=== PATIENT | female | born 1985 | race Caucasian/White ===

== ENCOUNTER 2016-12-18 11:03 | Emergency (ER) | payer SELFPAY ==
[~2016-12-18] VITALS: Ht 172.7 cm; Wt 59.0 kg
[2016-12-18 11:12] VITALS: BP 115/71
[2016-12-18] MEDS ORDERED: PROAIR HFA8.5 GM INH (11:54)
[2016-12-18] MEDS ORDERED: ACYC400T PO (11:54)
--- NOTE | 2016-12-18 11:54 | PHYS DOC ---
Past Medical History Past Medical History: Depression Additional Past Medical Histor: Herpes Past Surgical History: No Surgical History Alcohol Use: None Drug Use: None Adult General Chief Complaint Chief Complaint: MEDICATION REFILL [facility] HPI Patient is a 31 year old female presents emergency department stating that she took a home test was . Patient states that her are homeless and has been living on the streets. They're trying to get into with but did not have the information needed to be able to follow through with this. Patient also states that she is out of her acyclovir in which she uses to treat herpes. Patient also states that she is needing her bupropion and trazadone filled. Patient states she is having vaginal discharge but states it's is nothing different then it has been. She denies any concerns for sexually transmitted infections and prefers to not have any type of vaginal exam completed at this time. Review of Systems Review of Systems Constitutional: Denies fever or chills [] Eyes: Denies change in visual acuity, redness, or eye pain [] HENT: Denies nasal congestion or sore throat [] Respiratory: Denies cough or shortness of breath [] Cardiovascular: No additional information not addressed in HPI [] GI: Denies abdominal pain, nausea, vomiting, bloody stools or diarrhea [] : Denies dysuria or hematuria [] Musculoskeletal: Denies back pain or joint pain [] Integument: Denies rash or skin lesions [] Neurologic: Denies headache, focal weakness or sensory changes [] Endocrine: Denies polyuria or polydipsia [] Physical Exam Physical Exam Constitutional: Well developed, well nourished, no acute distress, non-toxic appearance. [] HENT: Normocephalic, atraumatic, bilateral external ears normal, oropharynx moist, no oral exudates, nose normal. [] Eyes: PERRLA, EOMI, conjunctiva normal, no discharge. [] Neck: Normal range of motion, no tenderness, supple, no stridor. [] Cardiovascular:Heart rate regular rhythm, no murmur [] Lungs & Thorax: Bilateral breath sounds clear to auscultation [] Skin: Warm, dry, no erythema, no rash. [] Back: No tenderness Extremities: No tenderness, no cyanosis, no clubbing, ROM intact, no edema. [] Neurologic: Alert and oriented X 3, normal motor function, normal sensory function, no focal deficits noted. [] Psychologic: Affect normal, judgement normal, mood normal. [] Current Patient Data Vital Signs Vital Signs Date Time Temp Pulse Resp B/P (MAP) Pulse Ox O2 Delivery O2 Flow Rate FiO2 12/18/16 11:12 98.5 78 18 96 Room Air 98.5 EKG EKG [] Radiology/Procedures Radiology/Procedures [] Course & Med Decision Making Course & Med Decision Making Pertinent Labs and Imaging studies reviewed. (See chart for details) Patient will be provided with her acyclovir which she states she takes 400 mg daily. Her bupropion and trazodone will not be filled at this time as there considered a category C. Patient also takes Bronkaid in which this will not be refilled as well. She will have ever be provided with albuterol. Patient was provided with information from [facility] that was found on the Internet. Patient will be discharged home in stable condition with signs and symptoms to return back to emergency department. She'll also be given [employer]'s number Dr. Workman in which she can follow-up with for further care. [] Dragon Disclaimer Dragon Disclaimer This electronic medical record was generated, in whole or in part, using a voice recognition dictation system. Departure Departure Impression: Primary Impression: Medication refill Additional Impression: test positive Disposition: 01 HOME, SELF-CARE Condition: STABLE Patient Instructions: Medication Refill, Emergency Department, Additional Instructions: You have been given a refill on your acyclovir. We'll provide 2 with a prescription for Pro air. Follow-up with with for further evaluations for your . Tylenol for pain and discomfort. If also been given an [employer] name to follow up with as well. Return back to emergency prior signs symptoms of become worse. Scripts Albuterol Sulfate (PROAIR HFA INHALER) 8.5 Gm Hfa.aer.ad 1 PUFF INH PRN Q6HRS Y for SHORTNESS OF BREATH, #1 INHALER 0 Refills Prov: NENA ROLDAN APRN 12/18/16 Acyclovir (ACYCLOVIR) 400 Mg Tablet 1 TAB PO DAILY, #30 TAB 3 Refills Prov: NENA ROLDAN APRN 12/18/16 Problem Qualifiers NENA ROLDAN APRN December 18, 2016 11:54
== END 2016-12-18 12:02 | disposition home or self-care (01) ==
LOC: ER 11:03
DX: Z76.0 Encounter for issue of repeat prescription (principal); Z32.01 Encounter for pregnancy test, result positive; F32.9 Major depressive disorder, single episode, unspecified
CPT/HCPCS: 81025; 84703; 99283

== ENCOUNTER 2016-12-30 12:09 | Emergency (ER) | payer OTHER ==
[~2016-12-30] VITALS: Ht 165.1 cm; Wt 61.2 kg
[~2016-12-30 12:09] MED LIST: ACYC400T PO; PROAIR HFA8.5 GM INH
[2016-12-30 12:40] VITALS: BP 115/54
--- NOTE | 2016-12-30 12:46 | PHYS DOC ---
Past Medical History Past Medical History: Depression Additional Past Medical Histor: Herpes Past Surgical History: No Surgical History Alcohol Use: None Drug Use: None Adult General Chief Complaint Chief Complaint: ABDOMINAL PAIN HPI HPI Patient is a 31 year old who presents with and abdominal pain. She states been off last couple weeks and some suprapubic area last for only a few seconds and twisting and turning and bending over makes it feel better. She is having some vaginal discharge that is also intermittent. She does have a history of herpes but states she hasn't had any outbreak recently. She's not quite sure when her last menstrual period was last month she had a very light when. Review of Systems Review of Systems Constitutional: Denies fever or chills [] Eyes: Denies change in visual acuity, redness, or eye pain [] HENT: Denies nasal congestion or sore throat [] Respiratory: Denies cough or shortness of breath [] Cardiovascular: No additional information not addressed in HPI [] GI: Denies abdominal pain, nausea, vomiting, bloody stools or diarrhea [] : Denies dysuria or hematuria [] Musculoskeletal: Denies back pain or joint pain [] Integument: Denies rash or skin lesions [] Neurologic: Denies headache, focal weakness or sensory changes [] Endocrine: Denies polyuria or polydipsia [] Allergies Allergies Allergies Coded Allergies Type Severity Reaction Last Updated Verified No Known Drug Allergies 12/30/16 No Physical Exam Physical Exam Constitutional: Well developed, well nourished, no acute distress, non-toxic appearance. [] HENT: Normocephalic, atraumatic, bilateral external ears normal, oropharynx moist, no oral exudates, nose normal. [] Eyes: PERRLA, EOMI, conjunctiva normal, no discharge. [] Neck: Normal range of motion, no tenderness, supple, no stridor. [] Cardiovascular:Heart rate regular rhythm, no murmur [] Lungs & Thorax: Bilateral breath sounds clear to auscultation [] Abdomen/pelvic exam: Bowel sounds normal, soft, no tenderness, no masses, no pulsatile masses. Normal external genitalia, no lesions seen, no cervical motion tenderness, minimal mucous discharge, no bleeding seen. Skin: Warm, dry, no erythema, no rash. [] Back: No tenderness, no CVA tenderness. [] Extremities: No tenderness, no cyanosis, no clubbing, ROM intact, no edema. [] Neurologic: Alert and oriented X 3, normal motor function, normal sensory function, no focal deficits noted. [] Psychologic: Affect normal, judgement normal, mood normal. [] Current Patient Data Vital Signs Vital Signs Date Time Temp Pulse Resp B/P (MAP) Pulse Ox O2 Delivery O2 Flow Rate FiO2 12/30/16 12:40 98.9 71 18 115/54 (74) 100 Room Air 98.9 Lab Values Laboratory Tests Test 12/30/16 11:41 12/30/16 12:32 12/30/16 13:12 POC Urine HCG, Qualitative Hcg positive (Negative) Urine Collection Type Unknown Urine Color Yellow Urine Clarity Clear Urine pH 6.5 Urine Specific [place] <=1.005 Urine Protein Negative mg/dL (NEG-TRACE) Urine Glucose (UA) Negative mg/dL (NEG) Urine Ketones (Stick) Negative mg/dL (NEG) Urine Blood Negative (NEG) Urine Nitrite Negative (NEG) Urine Bilirubin Negative (NEG) Urine Urobilinogen Dipstick 0.2 mg/dL (0.2 mg/dL) Urine Leukocyte Esterase Negative (NEG) Urine RBC 0 /HPF (0-2) Urine WBC Occ /HPF (0-4) Urine Squamous Epithelial Cells Few /LPF Urine Bacteria 0 /HPF (0-FEW) White Blood Count 7.8 x10^3/uL (4.0-11.0) Red Blood Count 4.32 x10^6/uL (3.50-5.40) Hemoglobin 11.5 g/dL (12.0-15.5) L Hematocrit 35.1 % (36.0-47.0) L Mean Corpuscular Volume 81 fL (79-100) Mean Corpuscular Hemoglobin 27 pg (25-35) Mean Corpuscular Hemoglobin Concent 33 g/dL (31-37) Red Cell Distribution Width 18.0 % (11.5-14.5) H Platelet Count 294 x10^3/uL (140-400) Neutrophils (%) (Auto) 57 % (31-73) Lymphocytes (%) (Auto) 31 % (24-48) Monocytes (%) (Auto) 9 % (0-9) Eosinophils (%) (Auto) 2 % (0-3) Basophils (%) (Auto) 1 % (0-3) Neutrophils # (Auto) 4.4 x10^3uL (1.8-7.7) Lymphocytes # (Auto) 2.4 x10^3/uL (1.0-4.8) Monocytes # (Auto) 0.7 x10^3/uL (0.0-1.1) Eosinophils # (Auto) 0.2 x10^3/uL (0.0-0.7) Basophils # (Auto) 0.1 x10^3/uL (0.0-0.2) Prothrombin Time 12.0 SEC (11.7-14.0) Prothrombin Time INR 0.9 (0.8-1.1) PTT 30 SEC (24-38) Sodium Level 140 mmol/L (136-145) Potassium Level 3.9 mmol/L (3.5-5.1) Chloride Level 105 mmol/L (98-107) Carbon Dioxide Level 27 mmol/L (21-32) Anion Gap 8 (6-14) Blood Urea Nitrogen 7 mg/dL (7-20) Creatinine 0.6 mg/dL (0.6-1.0) Estimated GFR (Cockcroft-Gault) 115.9 Glucose Level 77 mg/dL (70-99) Calcium Level 8.7 mg/dL (8.5-10.1) Total Bilirubin 0.2 mg/dL (0.2-1.0) Direct Bilirubin 0.1 mg/dL (0.0-0.2) Aspartate Amino Transferase (AST) 12 U/L (15-37) L Alanine Aminotransferase (ALT) 21 U/L (14-59) Alkaline Phosphatase 57 U/L (46-116) Total Protein 6.8 g/dL (6.4-8.2) Albumin 3.4 g/dL (3.4-5.0) Laboratory Tests 12/30/16 13:12 Laboratory Tests 12/30/16 13:12 EKG EKG [] Radiology/Procedures Radiology/Procedures [facility] [address] [place], [place] [id number] IMAGING REPORT Signed PATIENT: BART GORE ACCOUNT: [id number] : 1985 LOCATION: ER AGE: 31 SEX: F EXAM STATUS: REG ER ORD. PHYSICIAN: ANGELITA AARON MD REASON: abd pain PROCEDURE: OB < 14 WKS Obstetrical ultrasound, 12/30/2016: History: Pelvic pain, early Transabdominal scans were obtained. The uterus contains a single gestational sac. The gestational sac contains a yolk sac as well as a pole demonstrating a crown-rump length of 3-4 mm. This suggests a gestational age of 6 weeks yielding a sonographic EDC of 08/16/2017. Faint cardiac activity is identified with a heart rate of 99 bpm. No subchorionic hemorrhage is seen. There is a 1.5 cm cyst in the left ovary. The right ovary is unremarkable. No free fluid is evident in the pelvis. IMPRESSION: 1. Single viable intrauterine of 6 weeks gestational age. 2. bradycardia. Sonographic follow-up is suggested. 3. Small right ovarian cyst DICTATED and SIGNED BY: YUE HUERTAS MD DATE: 12/30/16 5252 CC: ANGELITA AARON MD; NO PCP ~ Impressions: Abdominal pain in Course & Med Decision Making Course & Med Decision Making Pertinent Labs and Imaging studies reviewed. (See chart for details) Pelvic exam is nonacute. Ultrasound shows bradycardia 3-99. Her wet mount shows few white blood cells, moderate squames, no clue cells trichomonas or yeast seen. She's being discharged with follow-up with Dr. Gusman. Return precautions given her and her significant other are agreeable to the plan and being discharged in stable condition. Dragon Disclaimer Dragon Disclaimer This electronic medical record was generated, in whole or in part, using a voice recognition dictation system. Departure Departure Impression: Primary Impression: Abdominal pain affecting Disposition: HOME, SELF-CARE Condition: STABLE Referrals: NO PCP (PCP) DEVON GUSMAN MD Patient Instructions: Abdominal Pain During , [id number] Additional Instructions: Your physical exam, urinalysis and pelvic exam did not show any acute abnormalities. Your ultrasound as listed below. Your rabies heart rate is slightly low but at a rate of 99 bpm. You will need to follow-up with Dr. Gusman hurting her and if you have any vaginal bleeding worsening pain or other concerns please return back to ER. [facility] [address] [place] [address] IMAGING REPORT Signed PATIENT: BART GORE ACCOUNT: [id number] : 1985 LOCATION: ER AGE: 31 SEX: F EXAM STATUS: REG ER ORD. PHYSICIAN: ANGELITA AARON MD REASON: abd pain PROCEDURE: OB < 14 WKS Obstetrical ultrasound, 12/30/2016: History: Pelvic pain, early Transabdominal scans were obtained. The uterus contains a single gestational sac. The gestational sac contains a yolk sac as well as a pole demonstrating a crown-rump length of 3-4 mm. This suggests a gestational age of 6 weeks yielding a sonographic EDC of 08/16/2017. Faint cardiac activity is identified with a heart rate of 99 bpm. No subchorionic hemorrhage is seen. There is a 1.5 cm cyst in the left ovary. The right ovary is unremarkable. No free fluid is evident in the pelvis. IMPRESSION: 1. Single viable intrauterine of 6 weeks gestational age. 2. bradycardia. Sonographic follow-up is suggested. 3. Small right ovarian cyst DICTATED and SIGNED BY: YUE HUERTAS MD DATE: 12/30/16 3315 CC: ANGELITA AARON MD; NO PCP ~ ANGELITA AARON MD Dec 30, 2016 12:46
[2016-12-30 12:58] LABS: BILIRUBIN,URINE NEGATIVE (NEG); GLUCOSE,URINE NEGATIVE (NEG); PH,URINE 6.5; PROTEIN,URINE NEGATIVE (NEG-TRACE)
[2016-12-30 12:59] LABS: BACTERIA,URINE 0 /HPF (0-FEW); NITRITE,URINE NEGATIVE (NEG); RBC,URINE 0 /HPF (0-2); SQUAMOUS EPITHELIAL CELL,UR FEW /LPF; UROBILINOGEN,URINE 0.2 mg/dL (0.2 mg/dL); WBC,URINE OCC /HPF (0-4)
[2016-12-30 13:29] LABS: WHITE BLOOD COUNT 7.8 x10^3/uL (4.0-11.0)
[2016-12-30 13:30] LABS: BASO # 0.1 x10^3/uL (0.0-0.2); BASO % 1 % (0-3); EOS % 2 % (0-3); HEMATOCRIT 35.1 % (36.0-47.0); HEMOGLOBIN 11.5 g/dL (12.0-15.5); LYMPH # 2.4 x10^3/uL (1.0-4.8); LYMPH % 31 % (24-48); MEAN CORPUSCULAR HEMOGLOBIN 27 pg (25-35); MEAN CORPUSCULAR HGB CONC 33 g/dL (31-37); MEAN CORPUSCULAR VOLUME 81 fL (79-100); MONO % 9 % (0-9); NEUT % 57 % (31-73); PLATELET COUNT 294 x10^3/uL (140-400); RED BLOOD COUNT 4.32 x10^6/uL (3.50-5.40)
[2016-12-30 13:43] LABS: INR 0.9 (0.8-1.1)
[2016-12-30 13:54] LABS: CALCIUM 8.7 mg/dL (8.5-10.1); CREATININE 0.6 mg/dL (0.6-1.0); GFR 115.9; POTASSIUM 3.9 mmol/L (3.5-5.1)
--- NOTE | 2016-12-30 13:54 | RAD ---
Obstetrical ultrasound, 12/30/2016: History: Pelvic pain, early Transabdominal scans were obtained. The uterus contains a single gestational sac. The gestational sac contains a yolk sac as well as a pole demonstrating a crown-rump length of 3-4 mm. This suggests a gestational age of 6 weeks yielding a sonographic EDC of 08/16/2017. Faint cardiac activity is identified with a heart rate of 99 bpm. No subchorionic hemorrhage is seen. There is a 1.5 cm cyst in the left ovary. The right ovary is unremarkable. No free fluid is evident in the pelvis. IMPRESSION: 1. Single viable intrauterine of 6 weeks gestational age. 2. bradycardia. Sonographic follow-up is suggested. 3. Small right ovarian cyst
[2016-12-30 13:59] LABS: ALBUMIN 3.4 g/dL (3.4-5.0); DIRECT BILIRUBIN 0.1 mg/dL (0.0-0.2); TOTAL BILIRUBIN 0.2 mg/dL (0.2-1.0); TOTAL PROTEIN 6.8 g/dL (6.4-8.2)
== END 2016-12-30 16:36 | disposition home or self-care (01) ==
LOC: ER 12:09
DX: O26.891 Other specified pregnancy related conditions, first trimester (principal); R10.9 Unspecified abdominal pain; F32.9 Major depressive disorder, single episode, unspecified; O99.341 Other mental disorders complicating pregnancy, first trimester; Z3A.01 Less than 8 weeks gestation of pregnancy
CPT/HCPCS: 36415; 76801; 80048; 80076; 81001; 81025; 84702; 85027; 85610; 85730; 87491; 87591; 99285; Q0111

== ENCOUNTER 2017-05-21 13:46 | Observation (INO) | payer OTHER ==
[2017-05-21] MEDS ORDERED: IV RINGERS,LACTATED 1000ML 1,000 ML IV SCH (14:56)
[2017-05-21 15:15] LABS: BILIRUBIN,URINE NEGATIVE (NEG); GLUCOSE,URINE NEGATIVE (NEG); NITRITE,URINE NEGATIVE (NEG); PROTEIN,URINE NEGATIVE (NEG-TRACE); UROBILINOGEN,URINE 0.2 mg/dL (0.2 mg/dL)
[2017-05-21 15:16] LABS: BARBITURATES NEG (NEG); BENZODIAZEPINES NEG (NEG); CANNABINOIDS NEG (NEG); COCAINE NEG (NEG); METHADONE NEG (NEG); OPIATES NEG (NEG); PHENCYCLIDINE NEG (NEG)
[2017-05-21 15:34] LABS: BACTERIA,URINE 0 /HPF (0-FEW); RBC,URINE 0 /HPF (0-2); SQUAMOUS EPITHELIAL CELL,UR MOD /LPF; WBC,URINE 0 /HPF (0-4)
[2017-05-21] MEDS ORDERED: PANTOPRAZOLE 40 MG TABLET.DR. PO ONE (16:15)
== END 2017-05-21 16:45 | disposition home or self-care (01) ==
LOC: 3 SO LND 13:46
PROVIDERS: ADMIT Obstetrics & Gynecology; ATTEND Obstetrics & Gynecology
DX: O26.892 Other specified pregnancy related conditions, second trimester (principal); M54.89 Other dorsalgia; Z3A.27 27 weeks gestation of pregnancy
CPT/HCPCS: 80307; 81001; 87086; G0378; G0379; G0479

== ENCOUNTER 2017-06-22 13:38 | Observation (INO) | payer OTHER | END 2017-06-22 15:20 | disposition home or self-care (01) | LOC: 3 SO LND 13:38 | PROVIDERS: ADMIT Specialist; ATTEND Specialist | DX: O62.9 Abnormality of forces of labor, unspecified (principal); O26.893 Other specified pregnancy related conditions, third trimester; N89.8 Other specified noninflammatory disorders of vagina; Z3A.32 32 weeks gestation of pregnancy | CPT/HCPCS: G0378; G0379 ==

== ENCOUNTER 2017-07-07 07:10 | Observation (INO) | payer OTHER ==
[2017-07-07] MEDS ORDERED: IV RINGERS,LACTATED 1000ML 1,000 ML IV SCH (07:55)
[2017-07-07 08:10] LABS: BILIRUBIN,URINE NEGATIVE (NEG); GLUCOSE,URINE NEGATIVE (NEG); NITRITE,URINE NEGATIVE (NEG); PH,URINE 7.5; PROTEIN,URINE NEGATIVE (NEG-TRACE)
[2017-07-07 08:16] LABS: SQUAMOUS EPITHELIAL CELL,UR MOD /LPF
[2017-07-07 08:17] LABS: BACTERIA,URINE MODERATE /HPF (0-FEW)
[2017-07-07 08:18] LABS: RBC,URINE RARE /HPF (0-2)
== END 2017-07-07 08:45 | disposition home or self-care (01) ==
LOC: 3 SO LND 07:10
PROVIDERS: ADMIT Specialist; ATTEND Specialist
DX: O62.9 Abnormality of forces of labor, unspecified (principal); O26.893 Other specified pregnancy related conditions, third trimester; M54.9 Dorsalgia, unspecified; Z3A.34 34 weeks gestation of pregnancy
CPT/HCPCS: 81001; 87086; G0378; G0379

== ENCOUNTER 2017-07-10 23:00 | Observation (INO) | payer OTHER ==
[2017-07-10] MEDS ORDERED: IV RINGERS,LACTATED 1000ML 1,000 ML IV SCH (23:30)
[2017-07-10 23:39] LABS: BILIRUBIN,URINE NEGATIVE (NEG); GLUCOSE,URINE NEGATIVE (NEG); NITRITE,URINE NEGATIVE (NEG); PROTEIN,URINE NEGATIVE (NEG-TRACE); UROBILINOGEN,URINE 0.2 mg/dL (0.2 mg/dL)
[2017-07-10 23:45] LABS: BACTERIA,URINE FEW /HPF (0-FEW); RBC,URINE 0 /HPF (0-2); SQUAMOUS EPITHELIAL CELL,UR FEW /LPF; WBC,URINE 0 /HPF (0-4)
[2017-07-10 23:46] LABS: BARBITURATES NEG (NEG); BENZODIAZEPINES NEG (NEG); CANNABINOIDS NEG (NEG); COCAINE NEG (NEG); METHADONE NEG (NEG); OPIATES NEG (NEG); PHENCYCLIDINE NEG (NEG)
== END 2017-07-11 01:13 | disposition home or self-care (01) ==
LOC: 3 SO LND 23:00
PROVIDERS: ADMIT Specialist; ATTEND Specialist
DX: O26.893 Other specified pregnancy related conditions, third trimester (principal); R10.30 Lower abdominal pain, unspecified; R10.2 Pelvic and perineal pain; Z3A.34 34 weeks gestation of pregnancy
CPT/HCPCS: 80307; 81001; G0378; G0379; G0479

== ENCOUNTER 2017-08-01 18:14 | Observation (INO) | payer OTHER | END 2017-08-01 19:50 | disposition home or self-care (01) | LOC: 3 SO LND 18:14 | DX: O36.5930 Maternal care for other known or suspected poor fetal growth, third trimester, not applicable or unspecified (principal); Z3A.38 38 weeks gestation of pregnancy | CPT/HCPCS: G0378; G0379 ==

== ENCOUNTER 2017-09-14 11:43 | Emergency (ER) | payer OTHER ==
[2017-09-14 12:02] LABS: URINE HCG POC HCG NEGATIVE (Negative)
[2017-09-14] MEDS: IOHEXOL 300 MG/ML 100ML VIAL. IV ×2 (12:30)
[2017-09-14 12:32] LABS: ADD MAN DIFF? NO
[2017-09-14] MEDS: 0.9 % SODIUM CHLORIDE 10 ML DISP.SYRIN. IV ×2 (12:35)
[2017-09-14] MEDS: IV NORMAL SALINE 1000ML BAG 1,000 ML IV ×2 (12:35)
[2017-09-14] MEDS: ONDANSETRON PF 4 MG/2 ML VIAL. IV ×2 (12:36)
[2017-09-14 12:38] LABS: CLARITY,URINE CLOUDY; COLOR,URINE RED; GLUCOSE,URINE NEGATIVE (NEG); PROTEIN,URINE 100 mg/dL (NEG-TRACE); UROBILINOGEN,URINE 0.2 mg/dL (0.2 mg/dL)
[2017-09-14 12:41] LABS: BASO % 1 % (0-3); EOS # 0.4 x10^3/uL (0.0-0.7); EOS % 7 % (0-3); HEMOGLOBIN 11.1 g/dL (12.0-15.5); LYMPH # 2.3 x10^3/uL (1.0-4.8); LYMPH % 39 % (24-48); MEAN CORPUSCULAR HEMOGLOBIN 26 pg (25-35); MEAN CORPUSCULAR HGB CONC 33 g/dL (31-37); MEAN CORPUSCULAR VOLUME 81 fL (79-100); MONO # 0.6 x10^3/uL (0.0-1.1); MONO % 10 % (0-9); NEUT # 2.6 x10^3uL (1.8-7.7); NEUT % 44 % (31-73); PLATELET COUNT 338 x10^3/uL (140-400); RED BLOOD COUNT 4.18 x10^6/uL (3.50-5.40); RED CELL DISTRIBUTION WIDTH 14.8 % (11.5-14.5); WHITE BLOOD COUNT 5.9 x10^3/uL (4.0-11.0)
[2017-09-14] MEDS ORDERED: CONTRAST GIVEN MC ×2 (12:45)
[2017-09-14 12:51] LABS: BACTERIA,URINE 0 /HPF (0-FEW); RBC,URINE TNTC /HPF (0-2); SQUAMOUS EPITHELIAL CELL,UR FEW /LPF
[2017-09-14 12:56] LABS: ANION GAP 6 (6-14); BLOOD UREA NITROGEN 6 mg/dL (7-20); CALCIUM 9.2 mg/dL (8.5-10.1); CARBON DIOXIDE 30 mmol/L (21-32); CHLORIDE 104 mmol/L (98-107); CREATININE 0.7 mg/dL (0.6-1.0); GFR 96.4; GLUCOSE 59 mg/dL (70-99); POTASSIUM 3.6 mmol/L (3.5-5.1); SODIUM 140 mmol/L (136-145)
[2017-09-14 13:01] LABS: ALBUMIN 3.5 g/dL (3.4-5.0); ALK PHOS 82 U/L (46-116); ALT (SGPT) 31 U/L (14-59); AST (SGOT) 18 U/L (15-37); DIRECT BILIRUBIN 0.1 mg/dL (0.0-0.2); TOTAL BILIRUBIN 0.2 mg/dL (0.2-1.0); TOTAL PROTEIN 7.2 g/dL (6.4-8.2)
[2017-09-14 13:01] LABS: TROPONINI < 0.017 ng/mL (0.000-0.055)
== END 2017-09-14 14:35 | disposition home or self-care (01) ==
LOC: ER 11:43
DX: R55 Syncope and collapse (principal); N30.90 Cystitis, unspecified without hematuria; N93.8 Other specified abnormal uterine and vaginal bleeding; J45.909 Unspecified asthma, uncomplicated; F43.10 Post-traumatic stress disorder, unspecified
CPT/HCPCS: 36415; 74177; 80048; 80076; 81001; 81025; 84484; 85025; 86850; 86900; 86901; 93005; 96361; 96374; 96375; 99285-25; J2405; J7030; Q9967

== ENCOUNTER → 2018-07-03 | Outpatient (CLI) | payer OTHER ==
[2017-09-14 14:15] VITALS: BP 109/61
[~2018-07-03] MED LIST changes: +ACET325T9 PO; +NAPR-514 PO; +NITR100C62 PO; +OXYC1TAB15 PO
--- NOTE | 2018-07-04 10:14 | RAD ---
OB ULTRASOUND, > 14 WEEKS Clinical Indication: Uterine size date discrepancy. Comparison: None. Technique: Multiple grayscale images, color Doppler, and M-mode images of the uterus are obtained. Findings: There is a single intrauterine gestation in breech presentation. The placenta is anterior in location without evidence of placenta previa. The amount of amniotic fluid appears appropriate. Amniotic fluid index is 12.1 cm. Cervical length is 5 cm. Biometrical data: BPD = 3.8 cm for 17 weeks 5 days. HC = 14.8 cm for 18 weeks 0 days. AC = 12.7 cm for 18 weeks 2 days. FL = 2.5 cm for 17 weeks 4 days. HC/AC ratio = 1.17. Overall, the estimated sonographic gestational age is 17 weeks and 6 days for an estimated date of delivery of December 05, 2018. The estimated date of delivery provided by the last menstrual period is December 02, 2018. Estimated weight is 215 +/- 32 grams. A 4 chamber heart is not well seen. The estimated heart rate is 139 beats per minute. Bilateral upper and lower extremities are identified. There is a three-vessel cord with cord insertion visualized. stomach and urinary bladder are identified. Both kidneys are seen. The spine and brain are unremarkable. No obvious anatomic abnormalities are identified. IMPRESSION: Single live intrauterine gestation with estimated sonographic gestational age of 17 weeks and 6 days. Electronically signed by: Wilbur Onofre MD (07/04/2018 10:10 AM) [id number]
== END | disposition home or self-care (01) ==
LOC: US 13:21
PROVIDERS: ATTEND Obstetrics & Gynecology
DX: O26.842 Uterine size-date discrepancy, second trimester (principal); Z3A.17 17 weeks gestation of pregnancy
CPT/HCPCS: 76805; 76817

== ENCOUNTER → 2018-09-24 | Outpatient (CLI) | payer OTHER ==
[2017-09-14 14:15] VITALS: BP 109/61
[~2018-09-24] MED LIST changes: +ALBU2.5V8 INH; +DOCU-109 PO; -PROAIR HFA8.5 GM INH
[2018-09-24 11:43] LABS: BASO % 0 % (0-3); EOS # 0.1 x10^3/uL (0.0-0.7); EOS % 1 % (0-3); HEMATOCRIT 35.4 % (36.0-47.0); HEMOGLOBIN 11.5 g/dL (12.0-15.5); LYMPH % 20 % (24-48); MEAN CORPUSCULAR HEMOGLOBIN 27 pg (25-35); MEAN CORPUSCULAR HGB CONC 32 g/dL (31-37); MEAN CORPUSCULAR VOLUME 83 fL (79-100); MONO # 0.6 x10^3/uL (0.0-1.1); MONO % 6 % (0-9); NEUT % 73 % (31-73); PLATELET COUNT 244 x10^3/uL (140-400); RED BLOOD COUNT 4.28 x10^6/uL (3.50-5.40); RED CELL DISTRIBUTION WIDTH 13.6 % (11.5-14.5); WHITE BLOOD COUNT 9.7 x10^3/uL (4.0-11.0)
== END | disposition home or self-care (01) ==
LOC: LAB 10:18
PROVIDERS: ATTEND Obstetrics & Gynecology
DX: O09.93 Supervision of high risk pregnancy, unspecified, third trimester (principal); Z3A.29 29 weeks gestation of pregnancy
CPT/HCPCS: 36415; 82950; 85025

== ENCOUNTER 2018-10-29 19:21 | Observation (INO) | payer OTHER ==
[~2018-10-29 19:21] MED LIST changes: -DOCU-109 PO
[2018-10-29] MEDS ORDERED: IV RINGERS,LACTATED 1000ML 1,000 ML IV SCH (19:41)
[2018-10-29 19:51] LABS: BILIRUBIN,URINE NEGATIVE (NEG); CLARITY,URINE CLEAR; COLOR,URINE YELLOW; NITRITE,URINE NEGATIVE (NEG); PH,URINE 6.5; PROTEIN,URINE NEGATIVE (NEG-TRACE); UROBILINOGEN,URINE 0.2 mg/dL (0.2 mg/dL)
[2018-10-29 19:57] LABS: BARBITURATES NEG (NEG); BENZODIAZEPINES NEG (NEG); CANNABINOIDS NEG (NEG); COCAINE NEG (NEG); METHADONE NEG (NEG); OPIATES NEG (NEG); PHENCYCLIDINE NEG (NEG)
[2018-10-29 20:00] LABS: AMPHETAMINE/METHAMPHETAMINE NEG (NEG)
[2018-10-29 20:04] LABS: BACTERIA,URINE 0 /HPF (0-FEW); RBC,URINE 0 /HPF (0-2); WBC,URINE OCC /HPF (0-4)
[2018-10-29 20:05] LABS: SQUAMOUS EPITHELIAL CELL,UR FEW /LPF
[2018-10-30] MEDS ORDERED: TERBUTALINE 1 MG/ML VIAL. ONE (00:19)
[2018-10-30 00:29] VITALS: BP 105/60
[2018-10-30] MEDS ORDERED: TERBUTALINE 1 MG/ML VIAL. SQ ONE (00:30)
== END 2018-10-30 00:36 | disposition home or self-care (01) ==
LOC: 3 SO LND 19:21
PROVIDERS: ADMIT Obstetrics & Gynecology; ATTEND Obstetrics & Gynecology
DX: O62.9 Abnormality of forces of labor, unspecified (principal); Z3A.31 31 weeks gestation of pregnancy
CPT/HCPCS: 80307; 81001; 96372; G0378; G0379; J3105

== ENCOUNTER 2018-11-01 12:09 | Observation (INO) | payer OTHER ==
[2018-11-01] MEDS ORDERED: IV RINGERS,LACTATED 1000ML 1,000 ML IV SCH (12:57)
[2018-11-01 13:52] LABS: BILIRUBIN,URINE NEGATIVE (NEG); CLARITY,URINE CLEAR; COLOR,URINE YELLOW; NITRITE,URINE NEGATIVE (NEG); PROTEIN,URINE NEGATIVE (NEG-TRACE); UROBILINOGEN,URINE 0.2 mg/dL (0.2 mg/dL)
[2018-11-01 13:59] LABS: BACTERIA,URINE FEW /HPF (0-FEW); RBC,URINE 0 /HPF (0-2); SQUAMOUS EPITHELIAL CELL,UR FEW /LPF; WBC,URINE 0 /HPF (0-4)
[2018-11-01 14:06] LABS: BARBITURATES NEG (NEG); BENZODIAZEPINES NEG (NEG); CANNABINOIDS NEG (NEG); COCAINE NEG (NEG); METHADONE NEG (NEG); OPIATES NEG (NEG); PHENCYCLIDINE NEG (NEG)
[2018-11-01 14:07] LABS: AMPHETAMINE/METHAMPHETAMINE NEG (NEG)
== END 2018-11-01 14:15 | disposition home or self-care (01) ==
LOC: 3 SO LND 12:09
PROVIDERS: ADMIT Obstetrics & Gynecology; ATTEND Obstetrics & Gynecology
DX: O62.9 Abnormality of forces of labor, unspecified (principal); Z3A.35 35 weeks gestation of pregnancy
CPT/HCPCS: 80307; 81001; G0378; G0379

== ENCOUNTER 2018-11-21 20:11 | Observation (INO) | payer OTHER ==
[2018-11-21] MEDS ORDERED: IV RINGERS,LACTATED 1000ML 1,000 ML IV SCH (20:22)
[2018-11-21 20:41] LABS: BILIRUBIN,URINE NEGATIVE (NEG); CLARITY,URINE CLEAR; COLOR,URINE YELLOW; NITRITE,URINE NEGATIVE (NEG); PROTEIN,URINE NEGATIVE (NEG-TRACE); UROBILINOGEN,URINE 0.2 mg/dL (0.2 mg/dL)
[2018-11-21 20:47] LABS: BARBITURATES NEG (NEG); BENZODIAZEPINES NEG (NEG); CANNABINOIDS NEG (NEG); COCAINE NEG (NEG); METHADONE NEG (NEG); OPIATES NEG (NEG); PHENCYCLIDINE NEG (NEG)
[2018-11-21 20:49] LABS: BACTERIA,URINE 0 /HPF (0-FEW); RBC,URINE 0 /HPF (0-2); SQUAMOUS EPITHELIAL CELL,UR OCC /LPF; WBC,URINE OCC /HPF (0-4)
[2018-11-21 20:53] LABS: AMPHETAMINE/METHAMPHETAMINE NEG (NEG)
== END 2018-11-21 21:28 | disposition home or self-care (01) ==
LOC: 3 SO LND 20:11
PROVIDERS: ADMIT Obstetrics & Gynecology; ATTEND Obstetrics & Gynecology
DX: O62.9 Abnormality of forces of labor, unspecified (principal); O99.89 Other specified diseases and conditions complicating pregnancy, childbirth and the puerperium; M54.9 Dorsalgia, unspecified; Z3A.38 38 weeks gestation of pregnancy
CPT/HCPCS: 80307; 81001; G0379

== ENCOUNTER 2018-11-26 06:23 | Inpatient (IN) | payer OTHER ==
[~2018-11-26] VITALS: Ht 165.1 cm; Wt 72.6 kg
[2018-11-26] MEDS ORDERED: ONDANSETRON PF 4 MG/2 ML VIAL. IV PRN ×2 (06:30→09:15)
[2018-11-26] MEDS ORDERED: OXYTOCIN 30 UNIT/500 ML PREMIX 500 ML IV PRN ×2 (06:30→09:15)
[2018-11-26] MEDS ORDERED: IBUPROFEN 400 MG TABLET. PO PRN (06:30)
[2018-11-26] MEDS ORDERED: 0.9 % SODIUM CHLORIDE 10 ML DISP.SYRIN. IV PRN ×2 (06:30→09:15)
[2018-11-26] MEDS ORDERED: CITRIC ACID/SODIUM CITRATE 30 ML SOLUTION. PO ONE (06:45)
[2018-11-26] MEDS: IV RINGERS,LACTATED 1000ML 1,000 ML IV SCH ×4 (07:28→18:32)
[2018-11-26 07:36] LABS: BASO % 1 % (0-3); EOS # 0.1 x10^3/uL (0.0-0.7); EOS % 1 % (0-3); HEMATOCRIT 30.4 % (36.0-47.0); HEMOGLOBIN 9.8 g/dL (12.0-15.5); LYMPH # 2.5 x10^3/uL (1.0-4.8); LYMPH % 36 % (24-48); MEAN CORPUSCULAR HEMOGLOBIN 25 pg (25-35); MEAN CORPUSCULAR HGB CONC 32 g/dL (31-37); MEAN CORPUSCULAR VOLUME 78 fL (79-100); MONO # 0.5 x10^3/uL (0.0-1.1); MONO % 8 % (0-9); NEUT # 3.8 x10^3uL (1.8-7.7); NEUT % 55 % (31-73); PLATELET COUNT 203 x10^3/uL (140-400); RED CELL DISTRIBUTION WIDTH 14.6 % (11.5-14.5); WHITE BLOOD COUNT 6.9 x10^3/uL (4.0-11.0)
--- NOTE | 2018-11-26 07:43 | PDOC1 ---
OB - History Hx of Present Care: Good Care Ultrasounds: Normal mid trimester US Obstetrical Complications: None Medical Complications: None Past Family/Social History * Past Medical, Surgical, Family and Obstetric Histories reviewed from chart. Rubella: Immune RPR/VDRL: Negative GBS Status: Negative HBsAG: Negative OB - Chief Complaint & HPI Date of Admission: Date of Admission: November 26, 2018 at 06:23 Chief Complaint/History : 5 Para: 3 EGA: 39 Reason for admission: section Indication for : desires repeat Admission Nurse Assessment Rev: Yes OB - Admission Exam Physical Exam HEENT: Normal Heart: Regular Rate Lungs: Clear Abdomen: Gravid, Non tender, Soft Extremities: Edema Reflexes: Normal Cervical Dilatation: Fingertip Effacement: 50% Station: -3 Membranes: Intact Heart Rate: Normal Accelerations: Accelerations Present Decelerations: No decelerations Contractions on Admission: >10 Minutes Apart Intensity: Mild Text A: 39 wks IUP PRevious c/s P: Admit for repeat c/s. JULIO CESAR HARDY Jr, MD November 26, 2018 07:43
[2018-11-26] MEDS ORDERED: KETOROLAC 30 MG/ML VIAL. IV PRN (07:45)
[2018-11-26] MEDS ORDERED: BUPIVACAINE MPF 0.75% DEXTROSE 2 ML AMPUL. ONE (08:02)
[2018-11-26] MEDS ORDERED: MORPHINE PF 5 MG/10 ML VIAL. ONE (08:03)
[2018-11-26] MEDS ORDERED: fentaNYL PF VIAL 100 MCG/2 ML VIAL ONE (08:03)
[2018-11-26] MEDS ORDERED: METOCLOPRAMIDE HCL 10 MG/2 ML VIAL. ONE (08:44)
[2018-11-26] MEDS ORDERED: ONDANSETRON PF 4 MG/2 ML VIAL. ONE (08:44)
[2018-11-26] MEDS ORDERED: FAMOTIDINE 20 MG/2 ML VIAL ONE (08:44)
[2018-11-26 08:49] LABS: BILIRUBIN,URINE NEGATIVE (NEG); CLARITY,URINE CLEAR; COLOR,URINE YELLOW; NITRITE,URINE NEGATIVE (NEG); PROTEIN,URINE NEGATIVE (NEG-TRACE); UROBILINOGEN,URINE 0.2 mg/dL (0.2 mg/dL)
[2018-11-26 09:00] LABS: BACTERIA,URINE 0 /HPF (0-FEW); RBC,URINE 0 /HPF (0-2); SQUAMOUS EPITHELIAL CELL,UR FEW /LPF; WBC,URINE 0 /HPF (0-4)
[2018-11-26] MEDS ORDERED: OXYTOCIN 10 UNIT/ML VIAL. ONE (09:00)
--- NOTE | 2018-11-26 09:05 | PDOC4 ---
OB Operative Note Date: November 26, 2018 PRE OP DIAGNOSIS: Previoujs C- section POST OP DIAGNOSIS: Previous C- section OPERATION PERFORMED: R [facility] Surgeon Dr. Workman Anesthesia: Regional (Spinal) Blood Loss 500 ml Specimen placenta and OB Findings: Position (Vertex), Sex (Male), (8/9), Weight (5 Lb 4 oz), Nuchal Cord (x1) Complications none Additional Remarks pt. JULIO CESAR Ash Jr, MD November 26, 2018 09:05
[2018-11-26] MEDS ORDERED: MAG HYDROX/ALUMINUM HYD/SIMETH 30 ML ORAL.SUSP PO PRN (09:15)
[2018-11-26] MEDS ORDERED: SIMETHICONE 80 MG TAB.CHEW PO PRN (09:15)
[2018-11-26] MEDS ORDERED: ZOLPIDEM 5 MG TABLET. PO PRN (09:15)
[2018-11-26] MEDS ORDERED: diphenhydrAMINE ORAL ELIXIR 12.5 MG/5 ML ML PO PRN (09:15)
--- NOTE | 2018-11-26 10:43 | OP ---
DATE OF SURGERY: 11/26/2018 PREOPERATIVE DIAGNOSES: 1. A 39 weeks intrauterine . 2. Previous section. POSTOPERATIVE DIAGNOSES: 1. A 39 weeks intrauterine . 2. Previous section. PROCEDURE: Repeat low transverse section. SURGEON: Julio Cesar Workman MD ANESTHESIA: Spinal. ESTIMATED BLOOD LOSS: 500 mL. COMPLICATIONS: None. FINDINGS: Viable male , Apgars 8 and 9, nuchal cord x 1, weight 5 pounds 4 ounces. Three-vessel cord placenta delivered under gentle traction intact. SUMMARY: A 33-year-old term gestation, presented for repeat section. She was counseled on the risks, benefits and expectations and voiced a clear understanding and agreed to proceed. DESCRIPTION OF PROCEDURE: The patient was taken to surgery suite and placed in dorsal supine position. She was prepped with ChloraPrep and draped in a sterile fashion. After adequate anesthesia, a Pfannenstiel skin incision was made with a scalpel down to and through the fascia. The fascia was extended laterally using curved Mendoza scissors. The superior edge of the fascia grasped with 2 Uzma clamps and dissected free of the abdominal rectus muscles using blunt dissection along with Bovie cautery. The same process took place inferiorly. The abdominal rectus muscles were dissected bluntly at the midline. Peritoneum was grasped with 2 hemostats and entered sharply with Metzenbaum scissors. This incision was extended superiorly as well as inferiorly. The Ricardo ring retractor was placed. Low transverse hysterotomy incision was made with a scalpel down to the amniotic sac. Hysterotomy incision was extended laterally and superiorly digitally. Amniotomy was performed with Allis clamp. With aid of fundal pressure, the 's head was delivered in a smooth atraumatic manner. Nuchal cord x 1 was visualized and reduced. With additional fundal pressure, the anterior shoulder was delivered followed by posterior shoulder and rest of the male infant was delivered. Infant was suctioned with bulb syringe orally and nasally. Umbilical cord was clamped twice and cut and a viable male infant was handed to waiting nursing staff. Umbilical cord blood was then obtained. Three-vessel cord placenta delivered under gentle traction intact. Uterus exteriorized, cleared of clot and debris with a moist lap. Hysterotomy incisions were reapproximated using 1 Vicryl suture in a running locked fashion. Two [id number] sutures were placed at the apex of the hysterotomy incision for better hemostasis. Uterus palpated firm. Fallopian tubes and ovaries appeared normal bilaterally. Posterior cul-de-sac was cleared of clot and debris with a moist lap. The uterus was then returned to the abdomen. The pericolic gutters were cleared of clot and debris with a moist lap. Hysterotomy incision was reviewed and was hemostatic. The Ricardo ring retractor was removed. Peritoneum was reapproximated using 1 Vicryl suture in running fashion. Fascia was reapproximated using Stratafix in a running fashion. Skin was reapproximated using 4-0 Vicryl suture in subcuticular manner. The patient tolerated the procedure well and was sent to recovery room in stable condition. Sponge and needle count correct x 3. JULIO CESAR WORKMAN MD DR: BERT/rashard JOB#: [id number] / [id number]
[2018-11-26] MEDS: KETOROLAC 30 MG/ML VIAL. IV PRN ×3 (11:32→23:43)
[2018-11-26 12:00] VITALS: BP 110/50
[2018-11-26 12:33] VITALS: BP 109/50
[2018-11-26 13:00] VITALS: BP 105/50
[2018-11-26 14:04] VITALS: BP 87/51
[2018-11-26 17:43] VITALS: BP 97/44
[2018-11-26 23:00] VITALS: BP 101/35
[2018-11-27 02:30] VITALS: BP 99/51
[2018-11-27] MEDS: IBUPROFEN 400 MG TABLET. PO PRN ×3 (05:57→19:57)
[2018-11-27 06:01] VITALS: BP 106/64
[2018-11-27 06:22] LABS: BASO % 0 % (0-3); EOS % 1 % (0-3); HEMATOCRIT 26.8 % (36.0-47.0); HEMOGLOBIN 8.6 g/dL (12.0-15.5); LYMPH # 1.9 x10^3/uL (1.0-4.8); LYMPH % 28 % (24-48); MEAN CORPUSCULAR HEMOGLOBIN 25 pg (25-35); MEAN CORPUSCULAR HGB CONC 32 g/dL (31-37); MEAN CORPUSCULAR VOLUME 79 fL (79-100); MONO # 0.6 x10^3/uL (0.0-1.1); MONO % 8 % (0-9); NEUT # 4.4 x10^3uL (1.8-7.7); NEUT % 63 % (31-73); PLATELET COUNT 162 x10^3/uL (140-400); RED BLOOD COUNT 3.41 x10^6/uL (3.50-5.40); WHITE BLOOD COUNT 6.9 x10^3/uL (4.0-11.0)
--- NOTE | 2018-11-27 07:40 | PDOC ---
OB Progress Note Date of Service 11/27/18 Time of Evaluation 0740 Notes Pt. feeling well. Pain controlled. Breast feeding. Lab Laboratory Tests Test 11/26/18 07:17 11/26/18 08:00 11/27/18 04:27 White Blood Count 6.9 x10^3/uL (4.0-11.0) 6.9 x10^3/uL (4.0-11.0) Red Blood Count 3.90 x10^6/uL (3.50-5.40) 3.41 x10^6/uL (3.50-5.40) Hemoglobin 9.8 g/dL (12.0-15.5) 8.6 g/dL (12.0-15.5) Hematocrit 30.4 % (36.0-47.0) 26.8 % (36.0-47.0) Mean Corpuscular Volume 78 fL (79-100) 79 fL (79-100) Mean Corpuscular Hemoglobin 25 pg (25-35) 25 pg (25-35) Mean Corpuscular Hemoglobin Concent 32 g/dL (31-37) 32 g/dL (31-37) Red Cell Distribution Width 14.6 % (11.5-14.5) 15.0 % (11.5-14.5) Platelet Count 203 x10^3/uL (140-400) 162 x10^3/uL (140-400) Neutrophils (%) (Auto) 55 % (31-73) 63 % (31-73) Lymphocytes (%) (Auto) 36 % (24-48) 28 % (24-48) Monocytes (%) (Auto) 8 % (0-9) 8 % (0-9) Eosinophils (%) (Auto) 1 % (0-3) 1 % (0-3) Basophils (%) (Auto) 1 % (0-3) 0 % (0-3) Neutrophils # (Auto) 3.8 x10^3uL (1.8-7.7) 4.4 x10^3uL (1.8-7.7) Lymphocytes # (Auto) 2.5 x10^3/uL (1.0-4.8) 1.9 x10^3/uL (1.0-4.8) Monocytes # (Auto) 0.5 x10^3/uL (0.0-1.1) 0.6 x10^3/uL (0.0-1.1) Eosinophils # (Auto) 0.1 x10^3/uL (0.0-0.7) 0.0 x10^3/uL (0.0-0.7) Basophils # (Auto) 0.0 x10^3/uL (0.0-0.2) 0.0 x10^3/uL (0.0-0.2) Urine Collection Type Unknown Urine Color Yellow Urine Clarity Clear Urine pH 7.0 Urine Specific [place] 1.010 Urine Protein Negative mg/dL (NEG-TRACE) Urine Glucose (UA) Negative mg/dL (NEG) Urine Ketones (Stick) Negative mg/dL (NEG) Urine Blood Negative (NEG) Urine Nitrite Negative (NEG) Urine Bilirubin Negative (NEG) Urine Urobilinogen Dipstick 0.2 mg/dL (0.2 mg/dL) Urine Leukocyte Esterase Negative (NEG) Urine RBC 0 /HPF (0-2) Urine WBC 0 /HPF (0-4) Urine Squamous Epithelial Cells Few /LPF Urine Bacteria 0 /HPF (0-FEW) Laboratory Tests Test 11/26/18 08:00 11/27/18 04:27 Urine Collection Type Unknown Urine Color Yellow Urine Clarity Clear Urine pH 7.0 Urine Specific [place] 1.010 Urine Protein Negative mg/dL (NEG-TRACE) Urine Glucose (UA) Negative mg/dL (NEG) Urine Ketones (Stick) Negative mg/dL (NEG) Urine Blood Negative (NEG) Urine Nitrite Negative (NEG) Urine Bilirubin Negative (NEG) Urine Urobilinogen Dipstick 0.2 mg/dL (0.2 mg/dL) Urine Leukocyte Esterase Negative (NEG) Urine RBC 0 /HPF (0-2) Urine WBC 0 /HPF (0-4) Urine Squamous Epithelial Cells Few /LPF Urine Bacteria 0 /HPF (0-FEW) White Blood Count 6.9 x10^3/uL (4.0-11.0) Red Blood Count 3.41 x10^6/uL (3.50-5.40) Hemoglobin 8.6 g/dL (12.0-15.5) Hematocrit 26.8 % (36.0-47.0) Mean Corpuscular Volume 79 fL (79-100) Mean Corpuscular Hemoglobin 25 pg (25-35) Mean Corpuscular Hemoglobin Concent 32 g/dL (31-37) Red Cell Distribution Width 15.0 % (11.5-14.5) Platelet Count 162 x10^3/uL (140-400) Neutrophils (%) (Auto) 63 % (31-73) Lymphocytes (%) (Auto) 28 % (24-48) Monocytes (%) (Auto) 8 % (0-9) Eosinophils (%) (Auto) 1 % (0-3) Basophils (%) (Auto) 0 % (0-3) Neutrophils # (Auto) 4.4 x10^3uL (1.8-7.7) Lymphocytes # (Auto) 1.9 x10^3/uL (1.0-4.8) Monocytes # (Auto) 0.6 x10^3/uL (0.0-1.1) Eosinophils # (Auto) 0.0 x10^3/uL (0.0-0.7) Basophils # (Auto) 0.0 x10^3/uL (0.0-0.2) Medications Current Medications Sodium Chloride (Normal Saline Flush) 3 ml QSHIFT PRN IV AFTER MEDS AND BLOOD DRAWS; Start 11/26/18 at 06:30; Stop 11/26/18 at 09:11; Status DC Ringer's Solution 1,000 ml @ 125 mls/hr Q8H IV Last administered on 11/26/18at 18:32; Start 11/26/18 at 06:30 Ondansetron HCl (Zofran) 4 mg PRN Q4HRS PRN IV NAUSEA/VOMITING; Start 11/26/18 at 06:30; Stop 11/26/18 at 09:10; Status DC Oxytocin/Sodium Chloride 500 ml @ 0 mls/hr CONT PRN PRN IV Post delivery bleeding; Start 11/26/18 at 06:30; Stop 11/26/18 at 09:11; Status DC Ibuprofen (Motrin) 800 mg PRN Q6HRS PRN PO PAIN; Start 11/26/18 at 06:30; Stop 11/26/18 at 09:11; Status DC Cefazolin Sodium/ Dextrose 50 ml @ 100 mls/hr 1X ONCE IV Last administered on 11/26/18at 07:30; Start 11/26/18 at 07:00; Stop 11/26/18 at 07:29; Status DC Citric Acid/ Sodium Citrate (Bicitra) 30 ml 1X ONCE PO Last administered on 11/26/18at 07:30; Start 11/26/18 at 06:45; Stop 11/26/18 at 06:46; Status DC Ketorolac Tromethamine (Toradol 30mg Vial) 30 mg PRN Q6HRS PRN IV PAIN; Start 11/26/18 at 07:45; Stop 11/26/18 at 09:11; Status DC Bupivacaine HCl/ Dextrose (Marcaine Spinal 0.75%) 2 ml STK-MED ONCE .ROUTE ; Start 11/26/18 at 08:02; Stop 11/26/18 at 08:04; Status DC Morphine Sulfate (Morphine Preservative Free) 5 mg STK-MED ONCE .ROUTE ; Start 11/26/18 at 08:03; Stop 11/26/18 at 08:04; Status DC Fentanyl Citrate (Fentanyl 2ml Vial) 100 mcg STK-MED ONCE .ROUTE ; Start 11/26/18 at 08:03; Stop 11/26/18 at 08:04; Status DC Famotidine (Pepcid Vial) 20 mg STK-MED ONCE .ROUTE ; Start 11/26/18 at 08:44; Stop 11/26/18 at 08:45; Status DC Metoclopramide HCl (Reglan Vial) 10 mg STK-MED ONCE .ROUTE ; Start 11/26/18 at 08:44; Stop 11/26/18 at 08:45; Status DC Ondansetron HCl (Zofran) 4 mg STK-MED ONCE .ROUTE ; Start 11/26/18 at 08:44; Stop 11/26/18 at 08:45; Status DC Ephedrine Sulfate (Akovaz) 50 mg STK-MED ONCE .ROUTE ; Start 11/26/18 at 08:44; Stop 11/26/18 at 08:45; Status DC Oxytocin (Pitocin) 10 unit STK-MED ONCE .ROUTE ; Start 11/26/18 at 09:00; Stop 11/26/18 at 09:01; Status DC Sodium Chloride (Normal Saline Flush) 3 ml QSHIFT PRN IV AFTER MEDS AND BLOOD DRAWS; Start 11/26/18 at 09:15 Oxytocin/Sodium Chloride 500 ml @ 125 mls/hr CONT PRN IV EXCESSIVE POST- BLEEDING; Start 11/26/18 at 09:15; Stop 11/26/18 at 17:14; Status DC Ibuprofen (Motrin) 800 mg PRN Q4HRS PRN PO INFLAMMATION Last administered on 11/27/18at 05:57; Start 11/26/18 at 09:15 Ondansetron HCl (Zofran) 4 mg PRN Q6HRS PRN IV NAUSEA/VOMITING; Start 11/26/18 at 09:15 Docusate Sodium (Colace) 100 mg PRN BID PRN PO CONSTIPATION; Start 11/26/18 at 09:15 Al Hydroxide/Mg Hydroxide (Mylanta Plus Xs) 30 ml PRN Q4HRS PRN PO HEARTBURN / GAS; Start 11/26/18 at 09:15 Simethicone (Gas-X) 80 mg PRN AFTMEALHC PRN PO GAS / BLOATING; Start 11/26/18 at 09:15 Diphenhydramine HCl (Benadryl Oral Elixir) 12.5 mg PRN Q6HRS PRN PO ITCHING; Start 11/26/18 at 09:15 Ferrous Sulfate (Feosol) 325 mg BIDWMEALS PO ; Start 11/26/18 at 17:00 Zolpidem Tartrate (Ambien) 5 mg PRN QHS PRN PO INSOMNIA, MAY REPEAT X1; Start 11/26/18 at 09:15 Oxycodone/ Acetaminophen (Percocet 5/325) 2 tab PRN Q4HRS PRN PO MODERATE PAIN, SEVERE PAIN; Start 11/26/18 at 09:15 Ketorolac Tromethamine (Toradol 30mg Vial) 30 mg PRN Q6HRS PRN IV PAIN Last administered on 11/26/18at 23:43; Start 11/26/18 at 09:15; Stop 12/01/18 at 09:14 Active Scripts Active Tylenol (Acetaminophen) 325 Mg Tablet 1-2 Tab PO QID Macrobid 100 Mg Capsule (Nitrofurantoin Monohyd/M-Cryst) 100 Mg Capsule 1 Cap PO BID Naproxen 500 Mg Tablet 1 Tab PO BID Percocet 5-325 Mg Tablet (Oxycodone/Acetaminophen) 1 Each Tablet 1-2 Tab PO Q4- 6HRS Proair Hfa Inhaler (Albuterol Sulfate) 8.5 Gm Hfa.aer.ad 1 Puff INH PRN Q6HRS PRN Acyclovir 400 Mg Tablet 1 Tab PO DAILY Exam Abd: soft, mild tenderness, fundus firm Incision site: clean, dry and intact Assessment POD#1 s/p repeat c/s Plan of Care: Continue current Tx, Mgmt JULIO CESAR HARDY Jr, MD November 27, 2018 07:40
[2018-11-27] MEDS: FERROUS SULFATE 325 MG TABLET. PO SCH ×2 (09:13→18:26)
[2018-11-27] MEDS: DOCUSATE SODIUM 100 MG CAPSULE. PO PRN ×3 (09:13→19:56)
[2018-11-27] MEDS: oxyCODONE/APAP 5/325 1 TAB TABLET PO PRN ×4 (09:13→22:56)
[2018-11-27 12:38] VITALS: BP 104/47
--- NOTE | 2018-11-27 14:19 | NUR ---
Patient off unit Patient asked to go to cafeteria, advised patient that I did not think it was safe since patient looks very sleeping. Patient also has had c/o headache and neck pain. Told patient that I could order food or drink and she stated she just needs a minute to be herself and a break. Asked if she could wait for her to walk with her. Stated she was fine and she would meet him down there. Patient insisted that she was leaving. Patient arrived back to unit about 5-10 later with an orange sweatshirt in hand that she previously did not have and no food/drink from [facility], not with her. Patient walked to her room. will monitor.
[2018-11-27 18:46] VITALS: BP 94/48
[2018-11-27 23:03] VITALS: BP 95/51
[2018-11-28] MEDS: IBUPROFEN 400 MG TABLET. PO PRN (04:12)
[2018-11-28] MEDS: oxyCODONE/APAP 5/325 1 TAB TABLET PO PRN ×3 (04:12→10:18)
[2018-11-28 06:00] VITALS: BP 99/54
[2018-11-28] MEDS: DOCUSATE SODIUM 100 MG CAPSULE. PO PRN (06:39)
--- NOTE | 2018-11-28 08:14 | PDOC3 ---
OB DISCHARGE SUMMARY DATE OF ADMISSION: 11/26/18 DATE OF DISCHARGE: 11/28/18 REASON FOR ADMISSION: section INTRAPARTUM PROCEDURES: : Low Cerv Trans DISCHARGE DIAGNOSIS: Term Delivered DISCHARGE INFORMATION: Activity (ad tyshawn), Diet (regular), Instructions (pelvic rest x 6 wks, no driving x 2 wks, no lifting > 20lbs. x 4 wks) HOSPITAL COURSE Term gestation delivered via repeat c/s without complications. JULIO CESAR HARDY Jr, MD November 28, 2018 08:14
[2018-11-28] MEDS ORDERED: OXYC1TAB15 PO (08:16)
[2018-11-28] MEDS ORDERED: NAPR-514 PO (08:16)
[2018-11-28] MEDS ORDERED: DOCU-109 PO (08:16)
--- NOTE | 2018-11-28 08:17 | DISCH ---
DISCHARGE INSTRUCTIONS Condition on Discharge Condition on Discharge: Stable Activity After Discharge Activity Instructions for Disc: Activity as tolerated Lifting Instructions after Dis: No heavy lifting Driving Instructions after Dis: No driving for 2 weeks Diet after Discharge Diet after Discharge: Regular Contacting the DRMichelle after DC Call your doctor for: Concerns you may have Follow-Up Follow up with: Dr. Workman in 2 wks. JULIO CESAR WORKMAN Jr, MD November 28, 2018 08:17
[2018-11-28 10:11] VITALS: BP 103/53
== END 2018-11-28 11:59 | disposition home or self-care (01) | DRG 787 ==
LOC: 3 SO LND 06:23 → 3 NORTH 12:00
PROVIDERS: ADMIT Obstetrics & Gynecology; ATTEND Obstetrics & Gynecology
PROC: 10D00Z1 Extraction of Products of Conception, Low, Open Approach (ICD-10-PCS; principal; 2018-11-26)
DX: O34.211 Maternal care for low transverse scar from previous cesarean delivery (principal); R71.0 Precipitous drop in hematocrit; O69.81X0 Labor and delivery complicated by cord around neck, without compression, not applicable or unspecified; Z3A.39 39 weeks gestation of pregnancy; Z37.0 Single live birth
CPT/HCPCS: 36415; 81001; 85025; 86592; 86850; 86900; 86901; J0696; J1885; J2270; J2405; J2590; J2765; J3010; J3490; J7120

== ENCOUNTER → 2019-08-07 | Outpatient (CLI) | payer OTHER ==
[~2019-08-07] MED LIST changes: +DOCU-109 PO
--- NOTE | 2019-08-07 12:48 | RAD ---
EXAM: Ultrasound OB Greater than 14 weeks INDICATION: Size and date discrepancy. TECHNIQUE: Real-time obstetrical ultrasound was performed with permanent freeze-frame documentation. COMPARISON: None. FINDINGS: POSITION: Cephalic HEART RATE: 1 45 bpm MISAEL: Subjectively normal PLACENTA: Anterior, grade 1 not low-lying. CERVICAL LENGTH: 4.6 cm MATERNAL UTERUS: Unremarkable. MATERNAL ADNEXA: Unremarkable. AGE/DATES: Gestational Age by LMP: 20 weeks 2 days Gestation Age by US: 20 weeks 2 days EDC by LMP: December 23, 2019 EDC by US: December 23, 2019 WEIGHT: 373 grams +/- 55 grams PERCENTILE WEIGHT: Not estimated BIOMETRIC PARAMETERS: BPD: 4.4 cm corresponding with 19 weeks 3 days HC: 17.1 cm corresponding with 19 weeks 5 days AC: 15.4 cm corresponding with 20 weeks 4 days FL: 3.6 cm corresponding with 21 weeks and 2 days ANATOMY: CARDIAC: Normal four chamber heart. Normal right and left ventricular outflow tracts. UMBILICAL CORD: Normal 3 vessel cord. Normal cord insertion. BRAIN: Unremarkable. NOSE/LIPS: Not well seen SPINE: Unremarkable. EXTREMITIES: Unremarkable. STOMACH: Unremarkable. KIDNEYS: Unremarkable. BLADDER: Unremarkable. IMPRESSION: OB ultrasound demonstrating a single viable fetus in cephalic position. Estimated gestational age of 20 weeks 2 days and EDC of December 23, 2019. Electronically signed by: Aracely Geller MD (08/07/2019 12:45 PM) [facility]
== END | disposition home or self-care (01) ==
LOC: US 10:09
PROVIDERS: ATTEND Obstetrics & Gynecology
DX: O26.842 Uterine size-date discrepancy, second trimester (principal); Z3A.20 20 weeks gestation of pregnancy
CPT/HCPCS: 76805

== ENCOUNTER → 2020-02-03 | Outpatient (CLI) | payer OTHER ==
[2019-12-17 13:00] VITALS: BP 93/53
[~2020-02-03] MED LIST changes: +IBUP-1027 PO
== END | disposition home or self-care (01) ==
LOC: LAB 11:56
PROVIDERS: ATTEND Obstetrics & Gynecology
DX: Z01.818 Encounter for other preprocedural examination (principal); Z11.59 Encounter for screening for other viral diseases
CPT/HCPCS: U0003-CS

== ENCOUNTER 2020-02-06 08:05 | Day surgery (SDC) | payer OTHER ==
[~2020-02-06 08:05] MED LIST changes: +HYDROmorphone 2 MG/ML VIAL IV PRN; +IV RINGERS,LACTATED 1000ML 1,000 ML IV SCH; +ONDANSETRON PF 4 MG/2 ML VIAL. IV PRN; +PROCHLORPERAZINE 10 MG/2 ML VIAL. IV PRN; +fentaNYL PF VIAL 100 MCG/2 ML VIAL IV PRN
[2020-02-06] MEDS ORDERED: ONDANSETRON PF 4 MG/2 ML VIAL. ONE (08:26)
[2020-02-06] MEDS ORDERED: FAMOTIDINE 20 MG/2 ML VIAL ONE (08:26)
[2020-02-06] MEDS ORDERED: fentaNYL PF VIAL 100 MCG/2 ML VIAL ONE ×2 (08:26→10:20)
[2020-02-06] MEDS ORDERED: MIDAZOLAM HCL/PF 2 MG/2 ML VIAL. ONE (08:26)
[2020-02-06] MEDS ORDERED: PROPOFOL 10 MG/ML (20ML) VIAL. IV ONE (08:26)
[2020-02-06] MEDS ORDERED: KETOROLAC 30 MG/ML VIAL. ONE (08:26)
[2020-02-06] MEDS ORDERED: ROCURONIUM 50 MG/5 ML VIAL. ONE (08:26)
[2020-02-06] MEDS ORDERED: LIDOCAINE 2% PF 5 ML VIAL. ONE (08:26)
[2020-02-06] MEDS ORDERED: DEXAMETHASONE SOD PHOS 4 MG/ML VIAL ONE (08:26)
[2020-02-06] MEDS ORDERED: BUPIVACAINE-EPI 0.25%-1:200000 MPF 30 ML VIAL. ONE (09:17)
[2020-02-06] MEDS ORDERED: GLYCOPYRROLATE 1 MG/5 ML VIAL. ONE (09:30)
[2020-02-06] MEDS ORDERED: NEOSTIGMINE METHYLSULFATE 5 MG/5 ML SYRINGE. ONE (09:30)
[2020-02-06] MEDS ORDERED: SEVOFLURANE 31 TO 60 MINUTES. IH ONE (09:57)
[2020-02-06] MEDS ORDERED: ePHEDrine PF IN SALINE 50 MG/10 ML SYRINGE. IV ONE (09:59)
--- NOTE | 2020-02-06 10:04 | PDOC ---
BRIEF OPERATIVE NOTE Date: Feb 06, 2020 Pre-Op Diagnosis Sterilization Post-Op Diagnosis SAme Procedure Performed [facility] Surgeon Dr. Workman Hairspring I Inspector Filler Sifter Machine: Norm Anesthesia Type: General Blood Loss less 5 ml Specimens Obtained none Findings nml size uterus, nml fallopian tubes and ovaries chris. Complications none Operative Note see dictation JULIO CESAR WORKMAN Jr, MD Feb 06, 2020 10:04
--- NOTE | 2020-02-06 10:06 | DISCH ---
DISCHARGE INSTRUCTIONS Condition on Discharge Condition on Discharge: Stable Activity After Discharge Activity Instructions for Disc: Avoid exertion Bathing Instructions: No Tub Bath until see Lifting Instructions after Dis: No heavy lifting, No pulling or pushing, Do not lift >10 pounds Driving Instructions after Dis: Do not drive today Weight Bearing Status after Di: No restrictions Diet after Discharge Diet after Discharge: Regular Diet Texture: Regular Liquid Texture: Thin Liquid Swallowing Supervision: None needed Contacting the DRMichelle after DC Call your doctor for: Concerns you may have Follow-Up Follow up with: Dr. Workman in 1 week. Treatment/Equipment after DC Adaptive Equipment Issued: None JULIO CESAR WORKMAN Jr, MD Feb 06, 2020 10:06
--- NOTE | 2020-02-06 10:14 | OP ---
DATE OF SURGERY: 02/06/2020 PREOPERATIVE DIAGNOSIS: Sterilization. POSTOPERATIVE DIAGNOSIS: Sterilization. PROCEDURE: Laparoscopic BTL with Filshie clips. SURGEON: Julio Cesar Workman MD MEDICAL RECORDS COORDINATOR: Norm. ANESTHESIA: GETA. ESTIMATED BLOOD LOSS: Less than 5 mL. COMPLICATIONS: None. FINDINGS: Normal size uterus, normal fallopian tubes and ovaries bilaterally. SUMMARY: A 35-year-old female, desires permanent sterilization, was counseled on risks, benefits and expectations as well as failure rate and desired to proceed. DESCRIPTION OF PROCEDURE: The patient was taken to surgery suite and placed in dorsal lithotomy position. She was prepped with Betadine solution for vaginal prep and ChloraPrep for abdominal prep. After adequate anesthesia, a speculum was placed vaginally. Anterior lip of the cervix grasped with single tooth tenaculum. Uterine acorn manipulator was then placed. Speculum was removed. Attention was now placed on abdomen. Small transverse skin incision was made just below the umbilicus with a scalpel. Veress needle was then placed through the infraumbilical incision site. The abdomen was allowed to insufflate up to 1-1/2 liters CO2 gas. The Veress needle was then removed, 5 mm trocar was placed. Scope was positioned. Uterus appeared normal size. Fallopian tubes and ovaries appeared normal. Left lower quadrant incision was made, in which an 8-mm trocar was placed with aid of Filshie clip applicator. Filshie clip was applied to the isthmus region of the right fallopian tube, totally occluding the fallopian tube. Same process took place with left adnexa. The trocars were then removed under direct visualization. The abdomen was allowed to deflate as much as possible along with mechanical manipulation. The two skin incisions were reapproximated using 4-0 Vicryl suture in subcuticular manner. A 0.25% Marcaine with epinephrine was injected at each incision site. Uterine acorn manipulator and single tooth tenaculum were removed. The patient tolerated the procedure well and was taken to recovery room in stable condition. Sponge and needle count correct x 3. JULIO CESAR WORKMAN MD DR: BERT/rashard JOB#: [id number] / [id number]
[2020-02-06] MEDS: fentaNYL PF VIAL 100 MCG/2 ML VIAL IV PRN ×2 (10:22→10:33)
[2020-02-06] MEDS ORDERED: OXYC1TAB15 PO (10:28)
[2020-02-06] MEDS ORDERED: oxyCODONE/APAP 5/325 1 TAB TABLET PO ONE ×2 (10:30)
[2020-02-06] MEDS ORDERED: MORPHINE SULFATE 2 MG/ML VIAL. ONE (10:46)
[2020-02-06] MEDS: MORPHINE SULFATE 2 MG/ML VIAL. IV PRN ×2 (10:49→10:57)
[2020-02-06 11:25] VITALS: BP 99/40
== END 2020-02-06 11:50 | disposition home or self-care (01) ==
LOC: SURG 08:05
PROVIDERS: ATTEND Obstetrics & Gynecology
DX: Z30.2 Encounter for sterilization (principal)
CPT/HCPCS: 58671; 81025; J1100; J1885; J2250; J2270; J2405; J2704; J2710; J3010; J3490; A7015